=== PATIENT | female | born 1995 | race African-American/Black ===

== ENCOUNTER 2019-02-01 14:46 | Emergency (ER) | payer MEDICAID ==
[~2019-02-01] VITALS: Ht 162.6 cm; Wt 68.0 kg
[2019-02-01 14:59] VITALS: BP_SYST 148
== END 2019-02-01 15:18 ==
LOC: SED 14:46
DX: Z02.89 Encounter for other administrative examinations (principal); R03.0 Elevated blood-pressure reading, without diagnosis of hypertension
CPT/HCPCS: 81025; 99283